=== PATIENT | female | born 1995 | race Caucasian/White ===

== ENCOUNTER → 2021-02-26 10:19 | Outpatient (CLI) | payer SELFPAY | PROVIDERS: PCP Physician Assistant Medical; Visit Provider Physician Assistant Medical | DX: L02.91 Cutaneous abscess, unspecified (principal) | CPT/HCPCS: 87070; 87077; 87147; 87186; 87205 ==

== ENCOUNTER → 2021-03-01 14:56 | Outpatient (CLI) | payer SELFPAY | PROVIDERS: PCP Physician Assistant Medical; Visit Provider Family Medicine | DX: L02.91 Cutaneous abscess, unspecified (principal) | CPT/HCPCS: 87070; 87075; 87077; 87205 ==

== ENCOUNTER 2021-03-05 16:33 | Emergency (ER) | payer SELFPAY ==
[2021-03-05 16:41] VITALS: BP 143/85; PULSE 82; RESP 18; TEMP 37; O2SAT 100; BMI 22.2
[2021-03-05 17:13] LABS: Add Manual Diff / Slide Review NO; Basophils Absolute Auto 0 /uL (0-100); Basophils Percent Auto 0.4 % (0-2); Eosinophils Absolute Auto 0 /uL (0-450); Eosinophils Percent Auto 0.4 % (2-4); Hemoglobin 14.8 g/dL (12.0-16.0); Lymphocytes Absolute Auto 1100 /uL (1100-4500); Lymphocytes Percent Auto 8.4 % (25-40); Mean Corpuscular HGB Conc 33.7 % (30-36); Mean Corpuscular Hemoglobin 32.3 PG (26-34); Mean Corpuscular Volume 95.7 fL (80-100); Monocytes Absolute Auto 1000 /uL (0-900); Monocytes Percent Auto 7.8 % (3-14); Neutrophils Absolute Auto 10300 /uL (1500-7000); Platelet Count 336 X10^3/uL (150-400); Red Cell Distribution Width 13.2 % (11.6-14.8); White Blood Cell Count 12.5 X10^3/uL (4.5-11.0)
[2021-03-05 17:21] LABS: COVID19 -Nasal RAPID Negative (Negative)
[2021-03-05 17:24] LABS: Alanine Aminotransferase 16 IU/L (<35); Albumin 5.3 g/dL (3.5-5.0); Albumin Globulin Ratio 1.6 (1.0-2.8); Alkaline Phosphatase 50 U/L (38-126); Aspartate Aminotransferase 29 IU/L (14-36); BUN Creatinine Ratio 12.3 (6-22); Bilirubin Total 1.3 mg/dL (0.2-1.3); Blood Urea Nitrogen 8 mg/dL (7-17); Calcium 9.9 mg/dL (8.4-10.2); Carbon Dioxide 29 mmol/L (22-32); Chloride 100 mmol/L (98-107); Estimated Glomerular Filt Rate > 60.0 mL/min (>60); Globulin 3.3 g/dL (1.7-4.1); Glucose 100 mg/dL (70-100); HEMOLYSIS 16 (0-50); Potassium 3.7 mmol/L (3.4-5.1); Sodium 141 mmol/L (137-145); Total Protein 8.6 g/dL (6.3-8.2)
[2021-03-05 18:06] LABS: COVID19 - ADMIT (NP swab/PCR) Negative (Negative)
[2021-03-05] MEDS: LIDO 1%/SOD BICARB 8.4% (10ML) 10 ML SYRINGE INJ (23:04)
--- NOTE | 2021-03-05 23:41 | ED.EXTPRO ---
HPI - Extremity Problem General Chief complaint: Extremity Problem,Nontraumatic Stated complaint: Sent in for Surgery Time Seen by Provider: 03/05/21 21:27 Source: patient Mode of arrival: Ambulatory Limitations: no limitations History of Present Illness HPI Narrative: 25-year-old with no significant medical history presents with 2-3 weeks of swelling appreciated in the left buttock cheek. Saw her primary care doctor on work this today and an I&D was done. The primary care doctor felt that additional surgical intervention was needed and sent her to the ER to try and facilitate this as urgent referral to surgery could not be done. She describes no fevers, cough, chills. There is no tenesmus or tenderness with bowel movements. No problems with constipation or abdominal pain. She has been on Keflex and is currently on day 5 of a 10 day course. Related Data Previous Rx's Medication Instructions Recorded cephalexin 500 mg capsule 500 mg PO TID #30 cap 02/26/21 mupirocin 2 % topical ointment 1 applic TOPICAL QID #22 g 02/26/21 clindamycin HCl 150 mg capsule 150 mg PO TID 10 Days #30 cap 03/05/21 metronidazole 250 mg tablet 250 mg PO TID #30 tab 03/05/21 Allergies Allergy/AdvReac Type Severity Reaction Status Date / Time No Known Drug Allergies Allergy Verified 03/05/21 16:41 Review of Systems Review of Systems Narrative: Remainder of complete review of systems is otherwise unremarkable except for that included in the HPI. Patient History Medical History Transgender Social History Smoking Status: Never smoker Smoking Status: Never smoker Substance Use Type: does not use Exam Narrative Exam Narrative: General: Alert appropriate in no acute distress Respiratory: Able to speak in full sentences, no obvious respiratory distress Abdomen: Nontender Skin: No obvious rashes, warm and dry Neurologic: Grossly intact no obvious asymmetries or abnormalities Psych: appropriate insight and affect, cooperative Buttock: There is a abscess on the left inner buttock that is not tracking toward the anus and does not appear to be a perirectal abscess. It was I and D earlier today and there is a small bit of packing it. Bedside ultrasound shows a small amount of purulence superior to the packing but no significantly deeper abscess. There is no evidence of cellulitis. Initial Vital Signs Initial Vital Signs: Vital Signs Temperature 98.6 F 03/05/21 16:41 Pulse Rate 82 03/05/21 16:41 Respiratory Rate 18 03/05/21 16:41 Blood Pressure 143/85 H 03/05/21 16:41 Pulse Oximetry 100 03/05/21 16:41 Procedures Abscess I/D Left buttock: Time of procedure: 23:46 Site: other (Left buttock, not perirectal) Local Anesthetic: lidocaine 1% and with bicarb Amount of anesthesia used (mL): 6 Technique: incised with #11 blade Amount of fluid expressed (mL): 5 Packing used?: plain Complications: other (No complications. 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/PCR) Stat 03/05/21 22:59 Wound Culture and Gram Stain Stat Discontinued Medications Lidocaine/Sodium Bicarbonate (Lido 1%/Sod Bicarb 8.4% (10ml) 10 Ml Syringe) 10 ml INJ NOW ONE Stop: 03/05/21 23:00 Last Admin: 03/05/21 23:04 Dose: 10 ml Documented by: FRANTZ Vital Signs Vital signs: Vital Signs - 8 hr 03/05/21 16:41 Temperature 98.6 F Pulse Rate 82 Respiratory Rate 18 Blood Pressure 143/85 H Pulse Oximetry 100 MDM - Extremity (Nontraumatic) Lab Data Result diagrams: 03/05/21 16:50 03/05/21 16:50 Labs: Lab Results 03/05/21 03/05/21 03/05/21 Range/Units 16:50 16:50 16:50 WBC 12.5 H (4.5-11.0) X10^3/uL RBC 4.60 (4.0-5.2) X10^6/uL Hgb 14.8 (12.0-16.0) g/dL Hct 44.0 (36-46) % MCV 95.7 (80-100) fL MCH 32.3 (26-34) PG MCHC 33.7 (30-36) % RDW 13.2 (11.6-14.8) % Plt Count 336 (150-400) X10^3/uL Neut % (Auto) 83.0 H (50-75) % Lymph % (Auto) 8.4 L (25-40) % [place] % (Auto) 7.8 (3-14) % Eos % (Auto) 0.4 L (2-4) % Baso % (Auto) 0.4 (0-2) % Neut # (Auto) 63957 H (5179-0581) /uL Lymph # (Auto) 1100 (0586-5935) /uL [place] # (Auto) 1000 H (0-900) /uL Eos # (Auto) 0 (0-450) /uL Baso # (Auto) 0 (0-100) /uL Sodium 141 (137-145) mmol/L Potassium 3.7 (3.4-5.1) mmol/L Chloride 100 (98-107) mmol/L Carbon Dioxide 29 (22-32) mmol/L BUN 8 (7-17) mg/dL Creatinine 0.65 (0.52-1.04) mg/dL Estimated GFR > 60.0 (>60) mL/min BUN/Creatinine Ratio 12.3 (6-22) Glucose 100 (70-100) mg/dL Calcium 9.9 (8.4-10.2) mg/dL Total Bilirubin 1.3 (0.2-1.3) mg/dL AST 29 (14-36) IU/L ALT 16 (<35) IU/L Alkaline Phosphatase 50 (38-126) U/L Total Protein 8.6 H (6.3-8.2) g/dL Albumin 5.3 H (3.5-5.0) g/dL Globulin 3.3 (1.7-4.1) g/dL Albumin/Globulin Ratio 1.6 (1.0-2.8) SARS-CoV-2 (PCR) Negative (Negative) 03/05/21 Range/Units 16:55 WBC (4.5-11.0) X10^3/uL RBC (4.0-5.2) X10^6/uL Hgb (12.0-16.0) g/dL Hct (36-46) % MCV (80-100) fL MCH (26-34) PG MCHC (30-36) % RDW (11.6-14.8) % Plt Count (150-400) X10^3/uL Neut % (Auto) (50-75) % Lymph % (Auto) (25-40) % [place] % (Auto) (3-14) % Eos % (Auto) (2-4) % Baso % (Auto) (0-2) % Neut # (Auto) (3655-9839) /uL Lymph # (Auto) (9308-9545) /uL [place] # (Auto) (0-900) /uL Eos # (Auto) (0-450) /uL Baso # (Auto) (0-100) /uL Sodium (137-145) mmol/L Potassium (3.4-5.1) mmol/L Chloride (98-107) mmol/L Carbon Dioxide (22-32) mmol/L BUN (7-17) mg/dL Creatinine (0.52-1.04) mg/dL Estimated GFR (>60) mL/min BUN/Creatinine Ratio (6-22) Glucose (70-100) mg/dL Calcium (8.4-10.2) mg/dL Total Bilirubin (0.2-1.3) mg/dL AST (14-36) IU/L ALT (<35) IU/L Alkaline Phosphatase (38-126) U/L Total Protein (6.3-8.2) g/dL Albumin (3.5-5.0) g/dL Globulin (1.7-4.1) g/dL Albumin/Globulin Ratio (1.0-2.8) SARS-CoV-2 (PCR) Negative (Negative) MDM Narrative Medical decision making narrative: Jordan was sent over from [facility] with concerns presumably for developing perirectal abscess. This is absolutely not a perirectal abscess. Bedside ultrasound does show a smaller area of fluctuance that does not get drained earlier. The initial I and D actually was an excellent procedure and minimal additional drainage was needed. Seizure tolerated the procedure well. A 2nd bit of packing was placed and the packing from the initial I and D was also replaced. Will ask her to remove the packing on Monday. Will have her continue with her Keflex and mupirocin. Lab work is done and suggests no evidence of systemic infection or sepsis. She is safe for home discharge Discharge Plan Departure Patient Disposition: Home Clinical Impression: Abscess Instructions: DI for Incision and Drainage of a Skin Abscess Activity Restrictions/Additional Instructions: Thank you for coming in today Ultrasound done in the emergency department shows only a small collection of fluid that was not drained earlier today. Your 1st doctor did an excellent job. There is no evidence of perirectal abscess or need for additional surgical intervention. Your lab work was reassuring and there is no evidence of cellulitis or sepsis. I did do a bit more of incision and drainage of the wound to get the last bit of purulence material. I repacked the original wound severe 2 small bits of packing that you can pull out while you are in the shower on Monday. Please complete the course of Keflex that you are currently taking. I would recommend following up with your doctor on or this sometime next week. Reasons to return to the emergency department would be increasing pain, redness, increased drainage, inability to have a bowel movement or high fevers. I hope you heal quickly in completely. Prescriptions: No Action clindamycin HCl 150 mg capsule 150 mg PO TID 10 Days Qty: 30 RF: 0 metronidazole 250 mg tablet 250 mg PO TID Qty: 30 RF: 0 cephalexin 500 mg capsule 500 mg PO TID Qty: 30 RF: 0 mupirocin 2 % ointment 1 applic topical QID Qty: 22 RF: 0 Referrals: Sunitha Hernandez PA-C [Primary Care Provider] -
--- NOTE | 2021-03-06 00:03 | PC.NURSE ---
defer assessment to Dr Farah, not visualised by this RN.
== END 2021-03-06 00:12 | disposition home or self-care (01) ==
PROVIDERS: Emergency Medicine; Emergency Provider Emergency Medicine; PCP Physician Assistant Medical
DX: L02.31 Cutaneous abscess of buttock (principal); Z20.822 Contact with and (suspected) exposure to COVID-19
CPT/HCPCS: 10060; 36415; 80053; 85025; 87635; 99283; C9803

== ENCOUNTER → 2021-03-12 08:22 | Outpatient (CLI) | payer SELFPAY ==
[2021-03-12 20:04] LABS: Add Manual Diff / Slide Review NO; Basophils Absolute Auto 0 /uL (0-100); Basophils Percent Auto 0.7 % (0-2); Eosinophils Absolute Auto 200 /uL (0-450); Eosinophils Percent Auto 2.9 % (2-4); Hematocrit 41.8 % (36-46); Hemoglobin 14.2 g/dL (12.0-16.0); Lymphocytes Absolute Auto 1200 /uL (1100-4500); Lymphocytes Percent Auto 19.2 % (25-40); Mean Corpuscular HGB Conc 33.9 % (30-36); Mean Corpuscular Hemoglobin 32.2 PG (26-34); Monocytes Absolute Auto 700 /uL (0-900); Monocytes Percent Auto 10.8 % (3-14); Neutrophils Absolute Auto 4000 /uL (1500-7000); Neutrophils Percent Auto 66.4 % (50-75); Platelet Count 326 X10^3/uL (150-400); Red Cell Distribution Width 13.3 % (11.6-14.8); White Blood Cell Count 6.1 X10^3/uL (4.5-11.0)
[2021-03-12 20:10] LABS: Alanine Aminotransferase 16 IU/L (<35); Albumin 4.6 g/dL (3.5-5.0); Albumin Globulin Ratio 1.6 (1.0-2.8); Alkaline Phosphatase 45 U/L (38-126); Aspartate Aminotransferase 24 IU/L (14-36); BUN Creatinine Ratio 16.2 (6-22); Bilirubin Total 0.6 mg/dL (0.2-1.3); Blood Urea Nitrogen 12 mg/dL (7-17); Calcium 9.9 mg/dL (8.4-10.2); Carbon Dioxide 31 mmol/L (22-32); Chloride 101 mmol/L (98-107); Estimated Glomerular Filt Rate > 60.0 mL/min (>60); Globulin 2.8 g/dL (1.7-4.1); Glucose 102 mg/dL (70-100); HEMOLYSIS < 15 (0-50); Potassium 4.3 mmol/L (3.4-5.1); Sodium 140 mmol/L (137-145); Total Protein 7.4 g/dL (6.3-8.2)
== END ==
PROVIDERS: PCP Physician Assistant Medical; Visit Provider Physician Assistant Medical
DX: L02.91 Cutaneous abscess, unspecified (principal)
CPT/HCPCS: 80053; 85025

== ENCOUNTER → 2021-03-26 07:43 | Outpatient (CLI) | payer SELFPAY | PROVIDERS: PCP Physician Assistant Medical; Visit Provider Physician Assistant Medical | DX: L02.91 Cutaneous abscess, unspecified (principal) | CPT/HCPCS: 87070; 87075; 87077; 87205 ==

== ENCOUNTER → 2021-04-09 09:44 | Outpatient (CLI) | payer SELFPAY | PROVIDERS: PCP Physician Assistant Medical; Visit Provider Physician Assistant Medical | DX: L02.91 Cutaneous abscess, unspecified (principal) | CPT/HCPCS: 87070; 87075; 87077; 87205 ==